=== PATIENT | male | born 1970 | race Caucasian/White ===

== ENCOUNTER 2018-07-21 09:55 | Outpatient (CLI) | payer BC ==
[2018-07-21 10:46] LABS: #Basophils 0.1 thou/uL (0.0-0.2); #Eosinphils 0.4 thou/uL (0.0-0.7); #Lymphocytes 2.1 thou/uL (1.20-3.40); #Monocytes 0.7 thou/uL (0.11-0.59); #Neutrophils 5.7 thou/uL (1.40-6.50); %Basophils 0.9 % (0.0-1.0); %Eosinophils 4.3 % (0.0-10.0); %Neutrophils 63.8 % (42.0-75.0); Hemoglobin 15.2 g/dL (14.0-18.0); Mean Corpuscular HGB CONC 32.6 g/dL (32.0-36.0); Mean Corpuscular Volume 91.9 fL (78.0-98.0); Mean Platelet Volume 6.7 fL (7.4-10.4); Platelet Count 834 thou/uL (130-400); RBC Distribution Width 12.4 % (11.5-14.5); Red Blood Cell (RBC) Count 5.09 mill/uL (4.70-6.10); White Blood Cell (WBC) Count 8.9 thou/uL (4.8-10.8)
[2018-07-21 11:03] LABS: Anion Gap 8 mmol/L (10-20); BUN (Urea Nitrogen) 20 mg/dL (8.9-20.6); Calc. Creatinine Clearance 0 mL/min (70-130); Carbon Dioxide 28 mmol/L (22-29); Chloride 107 mmol/L (98-107); Estimated GFR-MDRD Greater than 90; Glucose 90 mg/dL (70-105); Potassium 4.1 mmol/L (3.5-5.1); Sodium 139 mmol/L (136-145)
== END 2018-07-21 09:56 | disposition home or self-care (01) ==
LOC: LABBT 09:55
PROVIDERS: ATTEND Surgery
DX: Z01.812 Encounter for preprocedural laboratory examination (principal); K42.9 Umbilical hernia without obstruction or gangrene
CPT/HCPCS: 80048; 85025

== ENCOUNTER 2018-07-25 11:28 | Day surgery (SDC) | payer BC ==
[2018-07-21 10:15] VITALS: BMI 35.6
[2018-07-25] MEDS ORDERED: CEFAZOLIN 2 GM/50 ML BAG ONE (12:24)
[2018-07-25] MEDS ORDERED: Fentanyl 100 MCG/2 ML VIAL ONE ×3 (12:47→14:36)
[2018-07-25] MEDS ORDERED: Midazolam HCl 2 mg/2 ml Vial ONE ×2 (12:47→13:00)
[2018-07-25] MEDS ORDERED: Bupivacaine/Epinephrine 0.25% 30 ML VIAL ONE (12:52)
[2018-07-25] MEDS ORDERED: Dexamethasone 20 MG/5 ML VIAL ONE (13:42)
[2018-07-25] MEDS ORDERED: Lidocaine 1% PF 5 ML VIAL ONE (13:42)
[2018-07-25] MEDS ORDERED: ePHEDrine/0.9% NaCl/PF SYRINGE 50 mg/10 ml ONE (13:42)
[2018-07-25] MEDS ORDERED: PROPOFOL 200 MG/20 ML VIAL ONE (13:42)
[2018-07-25] MEDS ORDERED: Ondansetron PF 4 MG/2 ML Vial ONE (13:42)
[2018-07-25] MEDS ORDERED: Ketorolac Tromethamine 30 MG/ML VIAL ONE (14:56)
[2018-07-25] MEDS ORDERED: HYDROcodone/Acetaminophen 5/325 mg Tablet ONE (15:25)
--- NOTE | 2018-08-27 13:13 | OP ---
DATE OF PROCEDURE: 07/25/2018 PREOPERATIVE DIAGNOSES: 1. Umbilical hernia. 2. Soft tissue mass, left arm. POSTOPERATIVE DIAGNOSES: 1. Umbilical hernia. 2. Soft tissue mass, left arm. PROCEDURES PERFORMED: 1. Umbilical hernia repair with mesh, Ventralex ST Small. 2. Soft tissue mass excision, left arm, 2 cm. ANESTHESIA: General. ESTIMATED BLOOD LOSS: Minimal. COMPLICATIONS: None. SPECIMEN: Soft tissue mass. DESCRIPTION OF PROCEDURE: The patient was taken to the operating room and laid supine on the operating room table. After general anesthetic was obtained, the abdomen was shaved, prepped, and draped in usual sterile fashion. A curved incision was made below the umbilicus. Cautery was used to dissect down to and score the fascia. The umbilical stalk was amputated, exposing umbilical defect. Ventralex ST mesh brought into the sterile field. The preperitoneal space had been bluntly dissected through the defect. The mesh was placed with its tail pulled up laterally against the posterior abdominal wall. The tail Prolene to the edges of the fascia superior and inferiorly. The tails were then cut at the level of the fascia. The wound was irrigated. Local anesthetic was applied. The fascia was closed loosely over the mesh using a suture as well. The umbilical stalk using Vicryl. The skin was closed using 3-0 Vicryl, 4-0 Monocryl, and Dermabond. Next, the area over the soft tissue mass in left arm was prepped and draped in a sterile fashion. A longitudinal incision is made and the soft tissue mass removed, sent to [facility] for final diagnosis. The wound was closed using 3-0 Vicryl, 4-0 Monocryl, and Dermabond. The patient returned to Recovery in stable condition. All sponge counts, needle counts, and lap counts are correct. Job ID: [id number]
--- NOTE | 2018-08-28 10:29 | PQF ---
[facility] POST DISCHARGE CLINICAL DOCUMENTATION IMPROVEMENT CLARIFICATION FORM l Todays Date: 08/28/18 l Patients Name MARTHA ADHIKARI l l Admit Date 07/25/18 l Disch Date 07/25/18 Intern Architect Name Nicho Gutierrez Email: [email or web address]: [phone] To be completed by Intern Architect: Present Clinical Indicators - Signs / Symptoms Results and Location in Medical Record [ ] Documentation of: [ ] [ ] Documentation of: [ ] [ ] Documentation of: [ ] [ ] Documentation of: [ ] [ ] Risks [ ] [ ] [ ] Treatment [ ] SOFT TISSUE MASS LEFT ARM QUERY FOR SIZE EXCISED LESION MARGINS [ ] [ ] To be completed by Physician: LOBO HERNANDEZ The documentation in this patients record requires clarification to ensure coding compliance and accuracy. Check the appropriate box and include in your discharge summary. [ ] [ ] [ ] [ ] Please check this box if this does not apply to this patient [ ] Unable to determine [ ] Other diagnosis: Review the following information and exercise your independent professional judgment in responding to the clarification. Based upon the clinical findings, risk factors, and treatment, please clarify if you are treating one of the above probable or suspected diagnoses. Physician Signature: Date Time MTDD
== END 2018-07-25 16:10 | disposition home or self-care (01) ==
LOC: SDC 11:28
PROVIDERS: ATTEND Surgery
DX: K42.9 Umbilical hernia without obstruction or gangrene (principal); R22.32 Localized swelling, mass and lump, left upper limb
CPT/HCPCS: 88304; 96374; 96375; J1100; J1885; J2001; J2250; J2405; J2704; J3010